=== PATIENT | male | born 1950 | race Caucasian/White ===

== ENCOUNTER → 2020-08-08 | Outpatient (CLI) | payer OTHER, MEDICARE ==
[~2020-08-08] MED LIST: AMIO200T PO; AMIO200T42 PO; ATOR40TA78 PO; CLOP75TA52 PO; FURO-92 PO; HYDR-3237 PO; METF500T17 PO; METO-99 PO; METO25TA35 PO; POTA10TA11 PO; RAMI5CAP57 PO
[2020-08-08 16:15] LABS: MICROSCOPIC AUTO
[2020-08-08 16:25] LABS: ANION GAP 5 mmol/L (5-15); CALCIUM 8.9 mg/dL (8.5-10.1); CHLORIDE 101 mmol/L (98-107)
[2020-08-08 16:28] LABS: ALANINE AMINOTRANSFERASE 29 U/L (12-78); ALKALINE PHOSPHATASE 55 U/L (45-117); BILIRUBIN,TOTAL 0.8 mg/dL (0.2-1.0); CREATININE 1.07 mg/dL (0.7-1.3); TOTAL PROTEIN 7.3 g/dL (6.4-8.2)
== END | disposition home or self-care (01) ==
LOC: STAR 14:51
PROVIDERS: ATTEND Urology
DX: Z01.812 Encounter for preprocedural laboratory examination (principal); Z20.822 Contact with and (suspected) exposure to COVID-19; N32.89 Other specified disorders of bladder
CPT/HCPCS: 80053; 81001; 87086; 87635; 93005

== ENCOUNTER 2020-08-13 08:48 | Day surgery (SDC) | payer OTHER, MEDICARE ==
[~2020-08-13] VITALS: Ht 175.3 cm; Wt 86.5 kg
[2020-08-13 09:07] VITALS: BP 129/77
[2020-08-13] MEDS ORDERED: CHLORHEXIDINE 15 ML UDC MM ONE ×2 (09:30→11:30)
[2020-08-13] MEDS ORDERED: LACTATED RINGERS 1,000 ML IV SCH ×2 (09:30→11:30)
[2020-08-13] MEDS ORDERED: GEMCITABINE HCL 1,000 MG in SODIUM CHLORIDE 0.9% 23.7 ML BLADIN ONE (11:30)
[2020-08-13] MEDS ORDERED: PROPOFOL 10 MG/ML, 20ML ONE (12:03)
[2020-08-13] MEDS ORDERED: EPHEDRINE 50 MG/ML, 1ML ONE (12:03)
[2020-08-13] MEDS ORDERED: LIDOCAINE-MPF 2% ,5ML ONE (12:03)
[2020-08-13] MEDS ORDERED: ONDANSETRON 2MG/ML, 2ML ONE (12:03)
[2020-08-13] MEDS ORDERED: FENTANYL PF 100 MCG/2ML ONE ×2 (12:05→13:25)
[2020-08-13] MEDS: FENTANYL PF 100 MCG/2ML IV PRN ×2 (13:30→13:39)
[2020-08-13] MEDS ORDERED: ONDANSETRON 2MG/ML, 2ML IVPush PRN (13:30)
[2020-08-13] MEDS ORDERED: PROMETHAZINE 25 MG/ML, 1ML IVPush PRN (13:30)
[2020-08-13] MEDS ORDERED: ONDANSETRON 2MG/ML, 2ML IV PRN (13:30)
[2020-08-13] MEDS ORDERED: OXYcodone/APAP 5/325MG TABLET PO PRN (13:30)
[2020-08-13] MEDS ORDERED: OXYcodone 5 MG/5 ML ORAL.SOL UDC ONE (13:42)
[2020-08-13] MEDS ORDERED: ACETAMINOPHEN 650 MG/20.3 ML UDC ONE (13:42)
[2020-08-13] MEDS ORDERED: ACETAMINOPHEN 650 MG/20.3 ML UDC PO PRN (14:00)
[2020-08-13] MEDS ORDERED: OXYcodone 5 MG/5 ML ORAL.SOL UDC PO PRN (14:00)
== END 2020-08-13 17:10 | disposition home or self-care (01) ==
LOC: OUT 08:48
PROVIDERS: ATTEND Urology
DX: C67.1 Malignant neoplasm of dome of bladder (principal); C67.3 Malignant neoplasm of anterior wall of bladder; C67.4 Malignant neoplasm of posterior wall of bladder; N40.1 Benign prostatic hyperplasia with lower urinary tract symptoms; R35.1 Nocturia; R39.12 Poor urinary stream; E11.9 Type 2 diabetes mellitus without complications; I25.10 Atherosclerotic heart disease of native coronary artery without angina pectoris; I25.2 Old myocardial infarction; Z79.84 Long term (current) use of oral hypoglycemic drugs; Z79.899 Other long term (current) drug therapy; Z87.891 Personal history of nicotine dependence; Z95.1 Presence of aortocoronary bypass graft
CPT/HCPCS: 51720; 52235; 82962; 88305; J2405; J2704; J3010; J7120; J9201